=== PATIENT | female | born 1985 | race Caucasian/White ===

== ENCOUNTER 2017-03-13 21:31 | Emergency (ER) | payer OTHER ==
[~2017-03-13] VITALS: Ht 172.7 cm; Wt 66.8 kg
[2017-03-13] MEDS ORDERED: KETOROLAC 30 MG/1 ML IVPush ONE (22:00)
[2017-03-13] MEDS ORDERED: PROCHLORPERAZINE 5 MG/ML, 2ML IVPush ONE (22:00)
[2017-03-13] MEDS ORDERED: SODIUM CHLORIDE 0.9% 1,000ML IVBOLUS ONE (22:00)
[2017-03-13] MEDS ORDERED: DIPHENHYDRAMINE 50 MG/ML, 1ML IVPush ONE (22:00)
[2017-03-13] MEDS ORDERED: DIPHENHYDRAMINE 50 MG/ML, 1ML ONE (22:24)
[2017-03-13] MEDS ORDERED: PROCHLORPERAZINE 5 MG/ML, 2ML ONE (22:24)
[2017-03-13] MEDS ORDERED: KETOROLAC 30 MG/1 ML ONE (22:24)
[2017-03-13] MEDS ORDERED: BUTA-177 PO (23:14)
[2017-03-13 23:27] VITALS: BP 103/60
== END 2017-03-14 00:01 | disposition home or self-care (01) ==
LOC: ED 23:24
DX: G43.119 Migraine with aura, intractable, without status migrainosus (principal); Z90.49 Acquired absence of other specified parts of digestive tract
CPT/HCPCS: 96361; 96374; 96375; 99284; J0780; J1200; J1885; J7030